=== PATIENT | female | born 1980 ===

== ENCOUNTER 2017-01-21 11:16 | Day surgery (SDC) | payer OTHER ==
[2017-01-21] MEDS ORDERED: Lactated Ringer's 1,000 ML IV ONE (11:59)
[2017-01-21] MEDS ORDERED: Propofol 10 mg/ml Inj (20 ML) ONE (12:15)
[2017-01-21] MEDS ORDERED: Lidocaine 2% MPF (5 ml) Inj ONE (12:16)
[2017-01-21 12:40] VITALS: O2SAT 100
[2017-01-21 12:49] VITALS: RESP 17
[2017-01-21 13:02] VITALS: BP 106/68; PULSE 69; TEMP 97.5
== END 2017-01-21 13:03 | disposition home or self-care (01) ==
LOC: H.ENDO 11:16
PROVIDERS: ATTEND Internal Medicine Gastroenterology
DX: R63.4 Abnormal weight loss (principal); R10.13 Epigastric pain; K31.9 Disease of stomach and duodenum, unspecified; K21.9 Gastro-esophageal reflux disease without esophagitis; B96.81 Helicobacter pylori [H. pylori] as the cause of diseases classified elsewhere; K29.50 Unspecified chronic gastritis without bleeding
CPT/HCPCS: 43239; 88305; J2704; J7120